=== PATIENT | male | born 1955 | race Caucasian/White ===

== ENCOUNTER 2016-06-21 05:20 | Inpatient (IN) | payer MEDICARE, OTHER ==
[2016-06-21] VITALS (13 sets, daily range): BP systolic 103–147; BP diastolic 50–82
[~2016-06-21] VITALS: Ht 182.9 cm; Wt 76.9 kg
[2016-06-21] MEDS ORDERED: IV NORMAL SALINE 1,000ML 1,000 ML IV SCH ×2 (05:32→18:12)
--- NOTE | 2016-06-21 05:43 | EKG ---
[address] [address] Test Date: 2016-06-21 Test Time: 05:22:58 Pat Name: MAY CARNEY Department: Room: Gender: M Sports Athletic Trainer: : 1955 Requested By: TIERNEY YANG Order Number: [id number] Gery MD: Néstor Esposito Measurements Intervals [place] Rate: 175 P: VA: QRS: 33 QRSD: 88 T: 46 QT: 264 QTc: 455 Interpretive Statements SUPRAVENTRICULAR TACHYCARDIA Electronically Signed On 06-25-2016 15:27:59 CDT by Néstor Esposito
[2016-06-21] MEDS ORDERED: 0.9 % SODIUM CHLORIDE 10 ML DISP.SYRIN. IV PRN (05:45)
[2016-06-21] MEDS ORDERED: NOREPINEPHRINE BITARTRATE 8 MG in IV NORMAL SALINE 250ML 250 ML IV PRN (05:45)
[2016-06-21] MEDS ORDERED: VANCOMYCIN PER PHARMACY MC ONE (05:45)
[2016-06-21] MEDS ORDERED: IV NORMAL SALINE 1,000ML 1,000 ML ONE (05:48)
[2016-06-21 05:55] LABS: BASO % 0 % (0-3); EOS # 0.2 x10^3/uL (0.0-0.7); EOS % 2 % (0-3); HEMATOCRIT 37.8 % (39.0-53.0); HEMOGLOBIN 11.9 g/dL (13.0-17.5); LYMPH # 1.6 x10^3/uL (1.0-4.8); LYMPH % 13 % (24-48); MEAN CORPUSCULAR HEMOGLOBIN 26 pg (25-35); MEAN CORPUSCULAR HGB CONC 32 g/dL (31-37); MEAN CORPUSCULAR VOLUME 84 fL (79-100); MONO # 1.4 x10^3/uL (0.0-1.1); MONO % 11 % (0-9); NEUT # 9.4 x10^3uL (1.8-7.7); NEUT % 74 % (31-73); PLATELET COUNT 272 x10^3/uL (140-400); RED BLOOD COUNT 4.52 x10^6/uL (4.30-5.70); RED CELL DISTRIBUTION WIDTH 14.8 % (11.5-14.5); WHITE BLOOD COUNT 12.7 x10^3/uL (4.0-11.0)
[2016-06-21] MEDS ORDERED: IV NORMAL SALINE 50ML 50 ML ONE (05:55)
[2016-06-21] MEDS ORDERED: PIPERACILLIN/TAZOBACTAM 4.5 GM VIAL IV ONE (05:55)
--- NOTE | 2016-06-21 05:56 | PHYS DOC ---
General Chief Complaint: NAUSEA/VOMITING/DIARRHEA Stated Complaint: NAUSEA,VOMITING Time Seen by MD: 05:31 Source: patient Exam Limitations: clinical condition, other Problems: History of Present Illness Initial Comments "Give me a vomit bag and a urine cup." Pt is 60/M to ED from [facility] at [facility] via EMS for n/v/d. No PMH records available initially, uncooperative pt arrives febrile and apparently septic, initial ED VS 100.8, 173, 83/65, 99% RA. Two IVs established NS boluses initiated, BP recheck 105/89. Pt states for the past 3 days he's had severe cough, fever/chills/myalgias, urinary frequency/hesitancy, and post-tussive emesis. Pt does not vocalize complaints, "Give me a vomit bag and a urinal." To my inquiry for details and contributing factors regarding HPI pt states "I do PT every day, see I take care of myself." He does appear to have dementia, no lateralizing neurodeficits are present. Only medical history pt willing to reveal is that he had his appendix removed in the past. No prior records initially, pt is very poor historian as he arrives to the ED generally uncooperative, sarcastic, and insulting of staff. 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 Pt also had debridement or right foot ulcer 04/19. Wound cultures from 04/14 grew citrobacter, wells-sensitive pseudomonas, and blood cultures + Klebsiella. Upon hospital discharge pt rx doxycycline. Hospital course was complicated by urinary retention requiring catheterization, he was treated for candidal UTI. On 04/29 pt had episode SVT requiring adenosine. He was d/c to [facility] for continued care and rehab. I did speak with pt PCP at [place] Dr Alford, she states pt has had no symptoms and was otherwise well until yesterday some difficulty with pt prosthesis. She states pt had extensive labwork 2-3 days ago all of which was very reassuring, CRP was less than 1 with normal renal function. Pt is full code Pt MS did improve over time in ED with hydration and VS stabilization. Timing/Duration: unsure (possibly 3 days) Severity: severe Modifying Factors: improves with rest, worse with other Associated Symptoms: cough, diaphoresis, fever/chills, malaise, nausea/ vomiting (post-tussive) Allergies: Coded Allergies: No Known Drug Allergies (Unverified , 06/21/16) Past Medical History Medical History: other (DM, chronic osteomyelitis, SVT requiring adenosine 04/29, weight loss, HLP, iron deficiency anemia, psychotic disorder, vit D defic, insomnia, DM retinopathy, phantom limb, orthostatic hypotension, UTI, BPH, urinary retention, jason UTI, Klebsiella bacteremia) Surgical History: other (left BKA and subsequent AKA, left distal radius, appendectomy) Social History Smoker: cigarettes, greater than 1 pack/day Alcohol: other (couple of pink ladies daily) Drugs: none Review of Systems Constitutional: see HPI Respiratory: see HPI Cardiovascular: see HPIdenies chest pain, denies syncope Gastrointestinal: see HPI Genitourinary: see HPI Psychiatric/Neurological: see HPI Physical Exam General Appearance: severe distress Eyes: bilateral eye EOMI, bilateral eye PERRL, bilateral eye normal inspection Ear, Nose, Throat: hearing grossly normal, normal ENT inspection (dry membranes ), normal pharynx Neck: non-tender, supple Respiratory: no respiratory distress, other (coarse BS b/l with good air movement) Cardiovascular: normal peripheral pulses, tachycardia Gastrointestinal: normal bowel sounds, non tender, soft, no organomegaly Rectal: deferred Back: no vertebral tenderness, CVA tenderness (R) Extremities: other (callous formation at right planar 5th MTP joint no ulcer, left AKA stump no skin breakdown/erythema appears to be healing well) Neurologic/Psychiatric: brick and blocker aid labor II-XII nml as tested, no motor/sensory deficits, alert, other (on arrival pt very inappropriate, however as his VS improved and he became hydrated MS normalized to normal mood, cooperative, appropriate, AOx3) Skin: normal color, warm/dry Orders, Labs, Meds EKG: (0522) sinus tachycardia 175 bpm no STEMI per my evaluation 0610: Current heart rate 81 bpm, 95/54, 99% RA. No new complaints, no n/v and cough improved. EKG: (0635) NSR 77 bpm, no STEMI PATIENT: MAY CARNEY ACCOUNT: [id number] : 1955 LOCATION: ER AGE: 60 SEX: M EXAM STATUS: REG ER ORD. PHYSICIAN: TIERNEY YANG DO REASON: Sepsis, nausea, vomiting, fever PROCEDURE: ACUTE ABDOMEN SERIES Acute abdomen series with chest, 3 views, 06/21/2016: History: Nausea, vomiting, sepsis, fever The abdominal gas pattern is unremarkable without evidence of obstruction. No free air is seen in the abdomen. There is no evidence of organomegaly or abnormal abdominal calcifications. The heart size is normal. No pulmonary infiltrate is seen. There is no evidence of pleural fluid. IMPRESSION: No acute abdominal abnormality is detected. DICTATED AND SIGNED BY: BRITNI PARRY MD DATE: 06/21/16804 CC: PCP,NO; TIERNEY YANG DO ~ Pertinent labs: WBC 12.7, Hb 11.9, glucose 348, BUN 33, Cr 1.5, lactic acid 2.4 , Trop I 0.019, d-dimer 1.0, CRP 125.4, albumin 2.8, etoh + and <10, Influenza neg, UA grossly positive for infection. Blood/urine/sputum cultures pending. ED Course: Pt VS and MS improved with hydration, has now received nearly 3L IV hydration. Zosyn/vancomycin/tylenol given in ED. No emesis in ED, pt overall feeling much better. IMPRESSIONS: Urosepsis Hypovolemia SVT 2nd to above resolved with hydration Recent osteomyelitis with CRP 125.4 DM uncontrolled ARF Elevated d-dimer Urinary retention 0745: I discussed need for inpatient treatment. Pt states he refuses. His mental status has normalized, he is AOx3 and exhibits UCAR capacity. RN has called [place] to speak with pt's Dr Alford, awaiting her return call. 0915: Dr Alford called, she is in agreement pt needs hospitalization and her staff has spoken with pt. He is agreeable to admission. She also added that likely cause of UTI is retention, she requested we scan his bladder. She also added that pt's CRP was < 1 three days ago. 0915: Pt discussed with Dr Huber who requests CT evaluation b/l LE, call her back with results. CT nonfunctional at main building. RN reports urine residual volume 639mls. He has since voided 400+ mls. PATIENT: MAY CARNEY ACCOUNT: [id number] : 1955 LOCATION: ER AGE: 60 SEX: M EXAM STATUS: REG ER ORD. PHYSICIAN: TIERNEY YANG DO REASON: eval right foot and left stump for osteomyelitis recurrance PROCEDURE: CT LOWER EXTREMITY WO RIGHT Indication redness. Swelling. History of osteomyelitis. Axial images through the right ankle and foot were obtained. Images were reformatted in the coronal and sagittal planes. The study is slightly limited secondary to motion and the lack of IV contrast. An acute bony finding is not seen. Definite findings to suggest osteomyelitis are not seen. There is soft tissue swelling. A definite underlying abscess is not seen.. IMPRESSION: Soft tissue swelling. No definite bony finding seen. The study is limited as outlined above. If further evaluation for bone infection is warranted consider bone scan or MRI PQRS Compliance Statement: One or more of the following individualized dose reduction techniques were utilized for this examination: 1. Automated exposure control 2. Adjustment of the mA and/or kV according to patient size 3. Use of iterative reconstruction technique DICTATED AND SIGNED BY: SATHISH TORRES MD DATE: 06/21/16 1027 CC: PCP,ANABELA; TIERNEY YANG DO ~ PATIENT: MAY CARNEY ACCOUNT: [id number] : 1955 LOCATION: ER AGE: 60 SEX: M EXAM STATUS: REG ER ORD. PHYSICIAN: TIERNEY YANG DO REASON: OSTEOMYELITIS PROCEDURE: CT LOWER EXTREMITY WO LEFT CT of the left lower extremity without contrast, 06/21/2016: History: Possible osteomyelitis No IV contrast was administered for this study due to reported renal disease. There has been a previous left hnqne-kkr-[id number] amputation. There is minimal callus and/or dystrophic calcification adjacent to the bony stump. No bone destruction is seen. There is vague decreased density deep to the thigh musculature predominantly along the lateral and posterior margins of the distal stump. This process measures approximately 15 mm in greatest width as best seen laterally. The appearance suggests nonspecific fluid. No gas bubbles are seen within this process. A smaller vague area of decreased density is also noted within the inferior aspect of the hamstring musculature at the stump as seen on axial image 168 of series #3. There is moderate subcutaneous edema within the soft tissues of the stump. No subcutaneous gas is evident. Mild degenerative changes are present at the left hip joint. IMPRESSION: 1. No acute bony abnormality is detected. 2. Vague area of decreased density adjacent to the bony stump deep to the musculature suggesting nonspecific fluid such as hematoma or seroma. Infection cannot be excluded. 3. A smaller area of similar decreased density is seen within the hamstring musculature at the stump. PQRS Compliance Statement: One or more of the following individualized dose reduction techniques were utilized for this examination: 1. Automated exposure control 2. Adjustment of the mA and/or kV according to patient size 3. Use of iterative reconstruction technique DICTATED AND SIGNED BY: BRITNI PARRY MD DATE: 06/21/16 1032 CC: PCP,NO; TIERNEY YANG DO ~ 1110: Pt discussed with Dr Huber who accepts inpt/tele admission, IV fluids/ zosyn/vancomycin mainstay of treatment. Departure Time of Disposition: 11:14 Disposition: ADMITTED INPATIENT Diagnosis: urosepsis, b/l LE infection r/o osteomyelitis, hyp Condition: IMPROVED Additional Instructions: Inpt/tele admission Dr Huber is accepting. TIERNEY YANG DO Jun 21, 2016 05:56
[2016-06-21] MEDS ORDERED: PIPERACILLIN/TAZOBACTAM 4.5 GM in IV NORMAL SALINE 50ML 50 ML IV ONE ×2 (06:00→11:30)
[2016-06-21] MEDS ORDERED: [UNRECOGNIZED DRUG - OTHER] PO ONE (06:00)
[2016-06-21] MEDS ORDERED: CODEINE PO ONE (06:00)
[2016-06-21] MEDS ORDERED: ACETAMINOPHEN 325 MG TABLET PO ONE (06:00)
[2016-06-21] MEDS ORDERED: ONDANSETRON PF 4 MG/2 ML VIAL. IV ONE (06:00)
[2016-06-21] MEDS ORDERED: IV NORMAL SALINE 1,000ML 1,000 ML IV ONE (06:00)
[2016-06-21] MEDS ORDERED: PROMETH PO ONE (06:00)
[2016-06-21 06:04] LABS: ALBUMIN 2.8 g/dL (3.4-5.0); ALBUMIN/GLOBULIN RATIO 0.6 (1.0-1.7); CREATININE 1.5 mg/dL (0.7-1.3); GFR 47.7; POTASSIUM 4.9 mmol/L (3.5-5.1); TOTAL BILIRUBIN 0.3 mg/dL (0.2-1.0); TOTAL PROTEIN 7.2 g/dL (6.4-8.2)
[2016-06-21] MEDS ORDERED: VANCOMYCIN 2 GM in IV NORMAL SALINE 500ML 500 ML IV ONE (06:30)
[2016-06-21] MEDS ORDERED: INSULIN REGULAR 100 UNIT/ML 10ML VIAL. IV ONE (06:30)
[2016-06-21] MEDS ORDERED: IV NORMAL SALINE 500ML 500 ML ONE (06:43)
[2016-06-21] MEDS ORDERED: VANCOMYCIN 1 GM VIAL. ONE ×2 (06:43)
[2016-06-21 07:14] LABS: COLOR,URINE YELLOW
[2016-06-21 07:15] LABS: BACTERIA,URINE MANY /HPF (0-FEW); BILIRUBIN,URINE NEG (NEG); CLARITY,URINE TURBID; GLUCOSE,URINE NEG (NEG); NITRITE,URINE NEG (NEG); SQUAMOUS EPITHELIAL CELL,UR OCC /LPF; UROBILINOGEN,URINE 0.2 mg/dL (0.2 mg/dL); WBC,URINE TNTC /HPF (0-4)
[2016-06-21 07:22] LABS: AMPHETAMINE/METHAMPHETAMINE NEG (NEG); BARBITURATES NEG (NEG); BENZODIAZEPINES NEG (NEG); CANNABINOIDS NEG (NEG); COCAINE NEG (NEG); METHADONE NEG (NEG); OPIATES NEG (NEG); PHENCYCLIDINE NEG (NEG)
[2016-06-21 07:29] LABS: INFLUENZA A PATIENT NEGATIVE (NEGATIVE); INFLUENZA B PATIENT NEGATIVE (NEGATIVE)
--- NOTE | 2016-06-21 07:36 | EKG ---
[address] [address] Test Date: 2016-06-21 Test Time: 06:35:35 Pat Name: MAY CARNEY Department: Room: Gender: M Front End Application Developer: : 1955 Requested By: TIERNEY YANG Order Number: [id number] Reading MD: Néstor Esposito Measurements Intervals [place] Rate: 77 P: 51 DC: 148 QRS: 43 QRSD: 92 T: 36 QT: 368 QTc: 418 Interpretive Statements SINUS RHYTHM Electronically Signed On 06-25-2016 15:28:04 CDT by Néstor Esposito
--- NOTE | 2016-06-21 08:09 | RAD ---
Acute abdomen series with chest, 3 views, 06/21/2016: History: Nausea, vomiting, sepsis, fever The abdominal gas pattern is unremarkable without evidence of obstruction. No free air is seen in the abdomen. There is no evidence of organomegaly or abnormal abdominal calcifications. The heart size is normal. No pulmonary infiltrate is seen. There is no evidence of pleural fluid. IMPRESSION: No acute abdominal abnormality is detected.
[2016-06-21] MEDS: IV NORMAL SALINE 1,000ML 1,000 ML IV SCH ×5 (09:30→16:03)
--- NOTE | 2016-06-21 10:37 | RAD ---
Indication redness. Swelling. History of osteomyelitis. Axial images through the right ankle and foot were obtained. Images were reformatted in the coronal and sagittal planes. The study is slightly limited secondary to motion and the lack of IV contrast. An acute bony finding is not seen. Definite findings to suggest osteomyelitis are not seen. There is soft tissue swelling. A definite underlying abscess is not seen.. IMPRESSION: Soft tissue swelling. No definite bony finding seen. The study is limited as outlined above. If further evaluation for bone infection is warranted consider bone scan or MRI PQRS Compliance Statement: One or more of the following individualized dose reduction techniques were utilized for this examination: 1. Automated exposure control 2. Adjustment of the mA and/or kV according to patient size 3. Use of iterative reconstruction technique
--- NOTE | 2016-06-21 10:51 | RAD ---
CT of the left lower extremity without contrast, 06/21/2016: History: Possible osteomyelitis No IV contrast was administered for this study due to reported renal disease. There has been a previous left eteun-ceg-zzqq amputation. There is minimal callus and/or dystrophic calcification adjacent to the bony stump. No bone destruction is seen. There is vague decreased density deep to the thigh musculature predominantly along the lateral and posterior margins of the distal stump. This process measures approximately 15 mm in greatest width as best seen laterally. The appearance suggests nonspecific fluid. No gas bubbles are seen within this process. A smaller vague area of decreased density is also noted within the inferior aspect of the hamstring musculature at the stump as seen on axial image 168 of series #3. There is moderate subcutaneous edema within the soft tissues of the stump. No subcutaneous gas is evident. Mild degenerative changes are present at the left hip joint. IMPRESSION: 1. No acute bony abnormality is detected. 2. Vague area of decreased density adjacent to the bony stump deep to the musculature suggesting nonspecific fluid such as hematoma or seroma. Infection cannot be excluded. 3. A smaller area of similar decreased density is seen within the hamstring musculature at the stump. PQRS Compliance Statement: One or more of the following individualized dose reduction techniques were utilized for this examination: 1. Automated exposure control 2. Adjustment of the mA and/or kV according to patient size 3. Use of iterative reconstruction technique
[2016-06-21] MEDS ORDERED: ACETAMINOPHEN 325 MG TABLET PO PRN (11:15)
[2016-06-21] MEDS ORDERED: ONDANSETRON PF 4 MG/2 ML VIAL. IV PRN (11:15)
[2016-06-21] MEDS ORDERED: PIP/TAZO PER PHARMACY MC PRN (12:00)
[2016-06-21] MEDS ORDERED: VANCOMYCIN PER PHARMACY MC PRN (12:00)
[2016-06-21] MEDS ORDERED: DEXTROSE 50% 25 GM / 50ML DISP.SYRIN. IV PRN (12:00)
[2016-06-21] MEDS ORDERED: PIP/TAZO PER PHARMACY MC SCH (12:00)
[2016-06-21] MEDS: VANCOMYCIN PER PHARMACY MC SCH (12:01)
[2016-06-21] MEDS ORDERED: ASPI81TA2 PO (12:19)
[2016-06-21] MEDS ORDERED: ACET325T9 PO (12:19)
[2016-06-21] MEDS ORDERED: ATOR40TA59 PO (12:20)
[2016-06-21] MEDS ORDERED: CYAN10005 PO (12:21)
[2016-06-21] MEDS ORDERED: ERGO500012 PO (12:22)
[2016-06-21] MEDS ORDERED: FINA5TAB4 PO (12:22)
[2016-06-21] MEDS ORDERED: GABA-586 PO (12:23)
[2016-06-21] MEDS ORDERED: HYDR-2666 PO (12:24)
[2016-06-21] MEDS ORDERED: INSU100I17 SQ (12:25)
[2016-06-21] MEDS ORDERED: MAGN400T3 PO (12:28)
[2016-06-21] MEDS ORDERED: INSU100V13 SQ (12:28)
[2016-06-21] MEDS ORDERED: METF10002 PO (12:29)
[2016-06-21] MEDS ORDERED: METO25TA4 PO (12:29)
[2016-06-21] MEDS ORDERED: POLY17PO3 PO (12:30)
[2016-06-21] MEDS ORDERED: TAMS0.4C2 PO (12:30)
[2016-06-21] MEDS ORDERED: VENL75TA PO (12:31)
[2016-06-21] MEDS: INSULIN ASPART 300 UNITS/3 ML INSULN.PEN SQ SCH ×3 (12:45→20:38)
[2016-06-21] MEDS: PIPERACILLIN/TAZOBACTAM 3.375 GM in IV NORMAL SALINE 50ML 50 ML IV SCH ×2 (12:46→17:47)
[2016-06-21] MEDS: NORMAL SALINE IV SCH ×6 (12:46→18:00)
--- NOTE | 2016-06-21 13:56 | HP ---
ADMIT DATE: 06/21/2016 REASON FOR ADMISSION: Fever and sepsis. The history was obtained [facility], [facility] and a little bit from the patient, who was basically not cooperative with interview. HISTORY OF PRESENT ILLNESS: This is a 60-year-old , who was referred here for fever, which he states was 104 [facility] the [facility] facility where he is out at the moment, fever, tachycardia and hypotension. In the Emergency Room his temp was 100.8, his pulse was 173 and his blood pressure was 83/65. The patient himself has complained of severe cough, fever, chills and myalgias, urinary frequency. PAST MEDICAL HISTORY: He has been on doxycycline after completing the course of IV antibiotics for left leg osteomyelitis. He is also status post AKA. The organisms were Citrobacter, pseudomonas and Klebsiella growing in his blood. He has been having problems with urinary retention and was treated for a Janna UTI. He also had history of 227 of SVT, which required adenosine. at the [place] for rehab. He is doing PT and had extensive lab work 2 to 3 days ago, which apparently was normal. Hypertension, elevated cholesterol, history of right foot ulcer with debridement, tobacco use disorder, type 2 diabetes, psychotic, phantom limb pain, iron deficiency anemia. CODE STATUS: Full. ALLERGIES: None. MEDICATIONS: Extensive meds and that were reviewed. on the MAY. PAST SURGICAL HISTORY: Left BKA, subsequent followup with AKA and appendectomy. SOCIAL HISTORY: The patient would not give me amount of tobacco use, but according to the record greater than 1 pack a day. Alcohol: I told him his test was positive for alcohol and he stated "I do not appreciate of drinking because I don't drink." However, the records states that he drinks couple of [place] [employer] daily. REVIEW OF SYSTEMS: I asked him "do you have any particular complaints and he said no, I do not have any complaints and not cooperative." OBJECTIVE: GENERAL: After fluid resuscitation, his blood pressure 122/71, pulse 66, respirations 20, pulse ox 98% on room air, his temperature is 99 with a T-max of 100.8 at 5:30 this morning, his pulse was also 173 at 5:30 this morning. Height 72 inches, weight 170 pounds. GENERAL: A 60-year-old, who looks his stated age. He is alert and somewhat uncooperative. HEENT: His hearing is normal. His eyes are clear. His throat is clear. There is no exudate. NECK: Supple. There is no adenopathy. LUNGS: With a few crackles in the bases, but otherwise clear. CARDIOVASCULAR: Regular rhythm and rate. ABDOMEN: Soft, nontender, mildly protuberant. EXTREMITIES: The right extremity without edema or evidence of infection. He has a left stump with a transverse incision line, which is intact and shows no evidence of infection. LABORATORY DATA: His white blood cell count is 12.7, hemoglobin 11.9, hematocrit 37.8. He does have 74% neutrophils and 11% monos. Chemistry; C-reactive protein is 125.4, BUN is 33, creatinine is 1.5, glucose is 348 earlier, albumin is 2.8. D-dimer is 1. Alcohol was positive, it was less than 10. Urinalysis, too numerous to count white cells, large leukocyte esterase turbid clarity. Influenza A and B were negative. ASSESSMENT: 1. Sepsis with organ dysfunction. 2. Urinary tract infection. 3. Hypotension, resolved with fluid resuscitation. 4. Moderate protein malnutrition. 5. Positive alcohol and tobacco use disorder. 6. Episode of supraventricular tachycardia, which resolved with hydration, recent osteomyelitis, type 2 diabetes with hyperglycemia, elevated D-dimer with no evidence of PE. He has been on Lovenox. 7. Hypertension and reported nausea and vomiting, but is eating fine in the unit. PLAN: Admit to ICU, monitor his vital signs, IV antibiotics. His CAT scans were negative for osteomyelitis. Continue with DVT prophylaxis and wait for urine cultures. NIVIA KENDRICK DO DR: CARITO/tracey JOB#: [id number] / [id number]
[2016-06-21] MEDS: ENOXAPARIN 40 MG/0.4 ML DISP.SYRIN. SQ SCH (14:28)
[2016-06-21] MEDS: METOPROLOL TART IMMED RELEASE 25 MG TABLET PO SCH (18:36)
[2016-06-21] MEDS: INSULIN DETEMIR 300 UNITS/3 ML INSULN.PEN. SQ SCH (20:33)
[2016-06-21] MEDS: VENLAFAXINE 50 MG TABLET. PO SCH (20:37)
[2016-06-21] MEDS: GABAPENTIN 300 MG CAPSULE. PO SCH (20:37)
[2016-06-21] MEDS: HYDROCODONE/APAP 5/325MG TABLET. PO PRN (20:37)
[2016-06-21] MEDS: MAGNESIUM OXIDE 400 MG TABLET PO SCH (20:37)
[2016-06-21] MEDS: ATORVASTATIN CALCIUM 20 MG TABLET PO SCH (20:37)
[2016-06-22] VITALS (10 sets, daily range): BP systolic 109–151; BP diastolic 63–85
[2016-06-22] MEDS: PIPERACILLIN/TAZOBACTAM 3.375 GM in IV NORMAL SALINE 50ML 50 ML IV SCH ×4 (00:30→16:56)
--- NOTE | 2016-06-22 00:32 | ACF ---
Admission Criteria Forms SEPSIS and OTHER FEBRILE ILLNESS, W/O FOCAL INFECTION Clinical Indications for Admission to Inpatient Care ( Place 'X' for any and all applicable criteria): Admission is indicated for ANY ONE of the following (1)(2)(3)(4): [ ] I. Bacteremia [X]II. Suspected or identified specific infection requiring hospitalization (eg, meningitis, endocarditis) [ ]III. Hemodynamic instability [ ]IV. Altered mental status [X]V. Failure or unavailability of outpatient antimicrobial treatment [ ]. Hypoxemia [ ]VII. Seizures [ ]VIII. High-risk febrile neutropenia [ ]IX. Need for parenteral antibiotic in patient who is likely to abuse vascular access device (eg, injection drug user) [A](7) [ ]X. Temperature greater than 104.9 degrees F (40.5 degrees C) (oral) [ ]XI. Inpatient admission required rather than observation care because of ANY ONE of the following: [ ]1) Specific infection identified that is too severe for outpatient treatment or observation care trial [ ]2) Metabolic disorder (eg, hypoglycemia, hyperglycemia, metabolic acidosis) that is severe or persistent [ ]3) Temperature greater than 103.1 degrees F (39.5 degrees C) ( oral) that is not responsive to observation care treatment [ ]4) IV fluid to replace significant ongoing (eg, for over 24 hours) losses (> 3 L/m2 per day) [ ]5) Supplemental oxygen or respiratory treatments for over 24 hours that is performable only in acute inpatient setting [ ]6) Parenteral nutrition regimen need that must be implemented on inpatient basis [ ]7) Strict or protective (eg, laminar flow) isolation [ ]8) Other condition, treatment or monitoring requiring inpatient admission Extended stay beyond goal length of stay may be needed for(1)(3) [ ]a) Sepsis or septic shock(22) [ ]b) Positive blood cultures [ ]c) Insufficient oral intake [ ]d) High-risk febrile neutropenia(29)(30) [ ]e) Continued fever and clinical instability [ ]f) Clinically active comorbid illness (e.g,heart failure, renal failure , diabetes) The original [facility] [employer] content created by Shiloh Smith has been revised. The portions of the content which have been revised are identified through the use of italic text or in bold, and Shiloh Smith has neither reviewed nor approved the modified material. All other unmodified content is copyright [facility]. Please see references footnoted in the original [facility] edition 2016 Admission Criteria Met?: Yes NOMI JIMENEZ Jun 22, 2016 00:32
[2016-06-22] MEDS: IV NORMAL SALINE 1,000ML 1,000 ML IV SCH ×2 (04:00→14:38)
[2016-06-22] MEDS ORDERED: IV NORMAL SALINE 1,000ML 1,000 ML IV SCH (04:00)
[2016-06-22] MEDS: VANCOMYCIN 1.25 GM in IV NORMAL SALINE 250ML 250 ML IV SCH (06:10)
[2016-06-22 06:44] LABS: ALBUMIN 2.3 g/dL (3.4-5.0); ALBUMIN/GLOBULIN RATIO 0.6 (1.0-1.7); CALCIUM 8.2 mg/dL (8.5-10.1); CREATININE 1.1 mg/dL (0.7-1.3); GFR 68.3; POTASSIUM 4.2 mmol/L (3.5-5.1); TOTAL BILIRUBIN 0.2 mg/dL (0.2-1.0); TOTAL PROTEIN 6.3 g/dL (6.4-8.2)
[2016-06-22 07:11] LABS: BASO % 1 % (0-3); EOS # 0.2 x10^3/uL (0.0-0.7); EOS % 3 % (0-3); HEMATOCRIT 31.9 % (39.0-53.0); HEMOGLOBIN 10.5 g/dL (13.0-17.5); LYMPH # 1.1 x10^3/uL (1.0-4.8); LYMPH % 15 % (24-48); MEAN CORPUSCULAR HEMOGLOBIN 28 pg (25-35); MEAN CORPUSCULAR HGB CONC 33 g/dL (31-37); MEAN CORPUSCULAR VOLUME 83 fL (79-100); MONO # 0.8 x10^3/uL (0.0-1.1); MONO % 11 % (0-9); NEUT # 5.4 x10^3uL (1.8-7.7); NEUT % 72 % (31-73); PLATELET COUNT 253 x10^3/uL (140-400); RED BLOOD COUNT 3.83 x10^6/uL (4.30-5.70); RED CELL DISTRIBUTION WIDTH 14.7 % (11.5-14.5); WHITE BLOOD COUNT 7.5 x10^3/uL (4.0-11.0)
[2016-06-22] MEDS: GABAPENTIN 300 MG CAPSULE. PO SCH ×3 (07:57→20:06)
[2016-06-22] MEDS: FINASTERIDE 5 MG TABLET PO SCH (07:57)
[2016-06-22] MEDS: VENLAFAXINE 50 MG TABLET. PO SCH ×2 (07:57→20:06)
[2016-06-22] MEDS: ASPIRIN 81 MG TAB.CHEW PO SCH (07:58)
[2016-06-22] MEDS: HYDROCODONE/APAP 5/325MG TABLET. PO PRN (07:58)
[2016-06-22] MEDS: MAGNESIUM OXIDE 400 MG TABLET PO SCH ×2 (07:58→20:06)
[2016-06-22] MEDS: METOPROLOL TART IMMED RELEASE 25 MG TABLET PO SCH ×3 (07:58→16:55)
[2016-06-22] MEDS: TAMSULOSIN 0.4 MG CAP.ER.24H. PO SCH (07:58)
[2016-06-22] MEDS: POLYETHYLENE GLYCOL 3350 17 GM PACKET. PO SCH (07:58)
[2016-06-22] MEDS ORDERED: METFORMIN 500 MG TABLET. PO SCH (08:00)
[2016-06-22] MEDS: INSULIN ASPART 300 UNITS/3 ML INSULN.PEN SQ SCH ×4 (08:00→20:30)
[2016-06-22] MEDS: METFORMIN 500 MG TABLET. PO SCH ×2 (08:30→16:55)
[2016-06-22] MEDS: ENOXAPARIN 40 MG/0.4 ML DISP.SYRIN. SQ SCH (12:18)
--- NOTE | 2016-06-22 17:39 | PN ---
DATE: 06/22/2016 PROBLEMS: 1. Sepsis with organ dysfunction 2. Urinary tract infection. 3. septic shock, which has resolved. 4. Moderate protein malnutrition. 5. Alcohol use disorder. 6. Tobacco use disorder. 7. Episode of SVT in the Emergency Room, which resolved with hydration. 8. History of osteomyelitis. 9. Type 2 diabetes. 10. Elevated D-dimer with negative PE and DVT workup. 11. Hypertension. 12. One episode of vomiting. SUBJECTIVE: A 60-year-old admitted with the above problems. He had one episode of vomiting last night. This was when his temperature was 100.6 axillary, otherwise he has had uneventful night and continues on his antibiotics. Still waiting for the microbiology. Decided to go ahead and do a bone scan because of the somewhat inconclusive CT of his left AKA stump and right foot. OBJECTIVE: VITAL SIGNS: Blood pressure 111/63, pulse 61, respirations 18, pulse ox 92% on room air. Intake 4150, output 2452. GENERAL: Much calmer today, less uncooperative, does not have any specific complaints. His appetite is good. HEENT: His tongue was moist. NECK: Supple. LUNGS: Clear. CARDIOVASCULAR: Regular rhythm and rate. ABDOMEN: Soft, nontender. EXTREMITIES: Right extremity without edema. LABORATORY DATA: Glucose in 200s. CBC: White count now 7.5, down from 12.7. His bone scan is pending. PLAN: Continue current plan. Await the results of bone scan, decrease IV fluids. NIVIA KENDRICK DO DR: CARITO/tracey JOB#: [id number] / [id number]
[2016-06-22] MEDS: ATORVASTATIN CALCIUM 20 MG TABLET PO SCH (20:06)
[2016-06-22] MEDS: INSULIN DETEMIR 300 UNITS/3 ML INSULN.PEN. SQ SCH (20:07)
[2016-06-23] MEDS: PIPERACILLIN/TAZOBACTAM 3.375 GM in IV NORMAL SALINE 50ML 50 ML IV SCH ×2 (00:11→05:36)
[2016-06-23 06:04] VITALS: BP 137/81
[2016-06-23] MEDS: VANCOMYCIN 1.25 GM in IV NORMAL SALINE 250ML 250 ML IV SCH (06:09)
[2016-06-23 07:05] LABS: VANC TR 5.6 mcg/mL (10.0-20.0)
[2016-06-23] MEDS: INSULIN ASPART 300 UNITS/3 ML INSULN.PEN SQ SCH ×4 (07:30→21:00)
[2016-06-23 08:14] LABS: BASO % 1 % (0-3); EOS # 0.2 x10^3/uL (0.0-0.7); EOS % 3 % (0-3); HEMATOCRIT 32.4 % (39.0-53.0); HEMOGLOBIN 10.7 g/dL (13.0-17.5); LYMPH # 1.1 x10^3/uL (1.0-4.8); LYMPH % 15 % (24-48); MEAN CORPUSCULAR HEMOGLOBIN 27 pg (25-35); MEAN CORPUSCULAR HGB CONC 33 g/dL (31-37); MEAN CORPUSCULAR VOLUME 83 fL (79-100); MONO # 0.6 x10^3/uL (0.0-1.1); MONO % 7 % (0-9); NEUT # 5.9 x10^3uL (1.8-7.7); NEUT % 75 % (31-73); PLATELET COUNT 286 x10^3/uL (140-400); RED BLOOD COUNT 3.91 x10^6/uL (4.30-5.70); RED CELL DISTRIBUTION WIDTH 14.7 % (11.5-14.5); WHITE BLOOD COUNT 7.9 x10^3/uL (4.0-11.0)
[2016-06-23 08:26] LABS: ALBUMIN 2.4 g/dL (3.4-5.0); ALBUMIN/GLOBULIN RATIO 0.6 (1.0-1.7); CALCIUM 8.6 mg/dL (8.5-10.1); MAGNESIUM 1.9 mg/dL (1.8-2.4); POTASSIUM 3.9 mmol/L (3.5-5.1); TOTAL BILIRUBIN 0.3 mg/dL (0.2-1.0); TOTAL PROTEIN 6.6 g/dL (6.4-8.2)
[2016-06-23] MEDS: VANCOMYCIN PER PHARMACY MC SCH (09:00)
[2016-06-23] MEDS: POLYETHYLENE GLYCOL 3350 17 GM PACKET. PO SCH ×2 (09:00→09:46)
[2016-06-23] MEDS: METOPROLOL TART IMMED RELEASE 25 MG TABLET PO SCH ×2 (09:47→17:01)
[2016-06-23] MEDS: FINASTERIDE 5 MG TABLET PO SCH (09:47)
[2016-06-23] MEDS: MAGNESIUM OXIDE 400 MG TABLET PO SCH ×2 (09:48→20:37)
[2016-06-23] MEDS: GABAPENTIN 300 MG CAPSULE. PO SCH ×3 (09:48→20:37)
[2016-06-23] MEDS: TAMSULOSIN 0.4 MG CAP.ER.24H. PO SCH (09:48)
[2016-06-23] MEDS: METFORMIN 500 MG TABLET. PO SCH ×2 (09:48→17:00)
[2016-06-23] MEDS: ASPIRIN 81 MG TAB.CHEW PO SCH (09:48)
[2016-06-23] MEDS: VENLAFAXINE 50 MG TABLET. PO SCH ×2 (09:49→20:36)
[2016-06-23] MEDS: PIPERACILLIN/TAZOBACTAM 4.5 GM in IV NORMAL SALINE 50ML 50 ML IV SCH ×2 (12:00→12:49)
[2016-06-23 12:04] VITALS: BP 147/85
[2016-06-23] MEDS ORDERED: VANCOMYCIN 1.25 GM in IV NORMAL SALINE 250ML 250 ML IV SCH (14:30)
[2016-06-23] MEDS: ENOXAPARIN 40 MG/0.4 ML DISP.SYRIN. SQ SCH (14:52)
--- NOTE | 2016-06-23 15:10 | RAD ---
Three-phase bone scan of the right foot 06/23/2016 Clinical history: Wound involving the plantar aspect of the base of the right fifth toe. Technique: After the intravenous administration of 26.7 mCi of technetium 99m MDP, flow and immediate blood pool images of the right foot were obtained. Delayed images were obtained at 4 hours using the gamma camera. Findings: Comparison is made to a CT scan of the right foot dated 06/21/2016. No increased flow or blood pool is seen involving the right foot. On the delayed images areas of increased activity are seen involving the right ankle and scattered throughout the subtalar joint and the tarsometatarsal joints consistent with areas of degenerative change. No area of abnormal activity is seen to suggest evidence of osteomyelitis. Impression: There is no scintigraphic evidence of osteomyelitis involving the right foot.
[2016-06-23 15:18] VITALS: BP 161/87
[2016-06-23] MEDS: CEFTRIAXONE SODIUM 1 GM in IV NORMAL SALINE 50ML 50 ML IV SCH (16:00)
[2016-06-23 19:43] VITALS: BP 139/81
--- NOTE | 2016-06-23 19:48 | PN ---
DATE: 06/23/2016 PROBLEMS: 1. Sepsis with organ dysfunction. 2. Urinary tract infection. 3. Septic shock, which has resolved. 4. Moderate protein malnutrition. 5. Alcohol use disorder. 6. Tobacco use disorder. 7. Episode of SVT in the Emergency Room, which resolved with hydration. 8. History of osteomyelitis. 9. Type 2 diabetes. 10. Elevated D-dimer with negative for PE and DVT workup. 11. Hypertension. 12. Vomiting, which has resolved. SUBJECIVE: A 61-year-old male with the above problems. He is doing quite well. He does have a very odd affect when you speak to him and I suspect that he has a borderline personality disorder. We are having a bone scan today because of the somewhat inconclusive CT of his left AKA stump and right foot just to rule out any further osteomyelitis, but he is doing much better. OBJECTIVE: VITAL SIGNS: Blood pressure 137/81, pulse 65, temperature 97.5 and pulse ox 95% on room air. The patient's last elevated temperature was on the evening of 06/21/2016 which was 100.6. GENERAL: He is sitting in bed. He is alert, watching TV. HEENT: His tongue is moist. NECK: Supple. LUNGS: Clear. CARDIOVASCULAR: Regular rhythm and rate. ABDOMEN: Soft, nontender. EXTREMITIES: Right extremity is without edema. LABORATORY DATA: Hemoglobin 10.7, hematocrit 32.4, white cell count 7.9 down from 12.7. His CMP is essentially normal. He has a low albumin of 2.4. His bone scan is pending. Urine culture positive for gram-negative rods, sensitivity pending. PLAN: Continue IV antibiotics. Await the results of the bone scan. If the bone scan is negative, we could probably go back to [facility] tomorrow, which is a [place] [facility] and continue with his rehabilitation. NIVIA KENDRICK DO DR: CARITO/tracey JOB#: [id number] / [id number]
[2016-06-23] MEDS: ATORVASTATIN CALCIUM 20 MG TABLET PO SCH (20:37)
[2016-06-23] MEDS: INSULIN DETEMIR 300 UNITS/3 ML INSULN.PEN. SQ SCH (20:44)
[2016-06-23 23:13] VITALS: BP 150/80
[2016-06-24 05:46] VITALS: BP 130/70
[2016-06-24] MEDS: GABAPENTIN 300 MG CAPSULE. PO SCH ×3 (08:14→20:48)
[2016-06-24] MEDS: METOPROLOL TART IMMED RELEASE 25 MG TABLET PO SCH ×2 (08:15→17:55)
[2016-06-24] MEDS: MAGNESIUM OXIDE 400 MG TABLET PO SCH ×2 (08:15→20:48)
[2016-06-24] MEDS: ASPIRIN 81 MG TAB.CHEW PO SCH (08:15)
[2016-06-24] MEDS: TAMSULOSIN 0.4 MG CAP.ER.24H. PO SCH (08:15)
[2016-06-24] MEDS: FINASTERIDE 5 MG TABLET PO SCH (08:15)
[2016-06-24] MEDS: VENLAFAXINE 50 MG TABLET. PO SCH ×2 (08:15→20:48)
[2016-06-24] MEDS: METFORMIN 500 MG TABLET. PO SCH ×2 (08:15→17:54)
[2016-06-24] MEDS: INSULIN ASPART 300 UNITS/3 ML INSULN.PEN SQ SCH ×4 (08:23→21:01)
[2016-06-24] MEDS: POLYETHYLENE GLYCOL 3350 17 GM PACKET. PO SCH (08:24)
[2016-06-24 08:25] VITALS: BP 149/80
[2016-06-24] MEDS: VANCOMYCIN PER PHARMACY MC SCH (09:00)
[2016-06-24 11:04] VITALS: BP 176/88
[2016-06-24] MEDS ORDERED: INSULIN DETEMIR 300 UNITS/3 ML INSULN.PEN. SQ SCH (14:19)
[2016-06-24 14:27] LABS: VANC TR 4.1 mcg/mL (10.0-20.0)
[2016-06-24] MEDS: ENOXAPARIN 40 MG/0.4 ML DISP.SYRIN. SQ SCH (14:39)
[2016-06-24 15:14] VITALS: BP 158/75
[2016-06-24] MEDS: CEFTRIAXONE SODIUM 1 GM in IV NORMAL SALINE 50ML 50 ML IV SCH (16:00)
--- NOTE | 2016-06-24 18:02 | DS ---
DATE OF DISCHARGE: 06/24/2016 HOSPITAL COURSE: The patient is a 61-year-old male patient who was admitted with fever, tachycardia and hypotension. In the Emergency Room, his temperature was 100.8, pulse was extremely high at 173 and his blood pressure was 83/65. The patient himself complained of severe cough, fever, chills, myalgia and urinary frequency. He apparently has been on doxycycline after completing the course of IV antibiotics for his leg osteomyelitis and underwent left above knee amputation. The organisms were Citrobacter, pseudomonas and Klebsiella growing in his blood. He has been having problems with urinary retention and was treated for Janna urinary tract infection. He apparently is known to have episodes of supraventricular tachycardia, has had treatment with adenosine at the [facility]; however, he was extensively investigated and no abnormality was found. In any case, he was investigated in the Emergency Room, was found to have sepsis with organ dysfunction, urinary tract infection, hypertension that has resolved with fluid resuscitation, moderate protein calorie malnutrition and episode of supraventricular tachycardia that has resolved with hydration. He apparently has had recent osteomyelitis that resulted in his having left above-knee amputation, type 2 diabetes with hyperglycemia, elevated D-dimer with no evidence of PE. He was admitted to the ICU, started on aggressive IV fluid and also IV antibiotic. He had a CT scan of his left lower extremity. It was negative for osteomyelitis and he did actually extremely well. His white cell count came down from 12,700 to 7,900. His urine culture has grown more than 100,000 colony-forming units per mL of Klebsiella pneumoniae susceptible to almost all antibiotics except the ampicillin. He has been on ceftriaxone. PHYSICAL EXAMINATION: GENERAL: When I saw him today, he was resting slightly propped up in bed, in no apparent distress. He was awake, alert. On questioning him, he denied any complaint, in particular denied any chills, rigors or fever, denied any dysuria, frequency or hematuria, denied any nausea, vomiting, has been tolerating his food and has been afebrile, hemodynamically stable with normal white cell count, a decision was made to discharge him back to the [facility] to continue treatment as an outpatient with oral cefuroxime. When I examined him, he looked pale, but no jaundice, cyanosis, or thyromegaly. No jugular venous distention. No limb edema. VITAL SIGNS: His heart rate was 71, blood pressure 158/75, temperature was 98.9, respiratory rate was 20 and oxygen saturation was 96%. HEAD, EYES, EARS, NOSE AND THROAT: Normocephalic, atraumatic. NECK: Supple. HEART: Showed normal first and second heart sounds with no gallop, rub or murmur. CHEST: Clear to auscultation. No crepitation or rhonchi. ABDOMEN: Distended, soft, nontender. NEUROLOGIC: He was awake, alert, responding appropriately. Cranial nerves are intact. He moves extremities without difficulty. He is mostly bed bound and chair bound as he has left above knee amputation. His intake over the last 24 hours was 4650, output was 650. LABORATORY DATA: Showed a white cell count of 7900, hemoglobin 10.7, hematocrit 32.4, MCV 83 and platelet count ____. His chemistry showed serum sodium 142, potassium 3.9, chloride 106, bicarbonate 27, anion gap of 9, BUN 17, creatinine 1. Estimated GFR was 76 mL per minute. His glucose was 106, calcium was 8.6, magnesium was 1.9. Total bilirubin, AST, ALT, alkaline phosphatase were normal. His total protein was 6.6, albumin was 2.4. D-dimer was 1 mg. Urinalysis showed that he has large leukocyte esterase, 3-5 rbc's, too numerous to count wbc's and too many bacteria with the culture growing more than 100,000 colony-forming units per mL of Klebsiella pneumoniae. DISCHARGE MEDICATIONS: The patient will be discharged to continue on cefuroxime 500 mg twice a day for 7 days, Tylenol 650 mg every 6 hours, aspirin 81 mg once a day, atorvastatin 40 mg at bedtime, cyanocobalamin 1000 mcg p.o. daily, ergocalciferol for vitamin D2 50,000 units once a week, finasteride 5 mg once a day, gabapentin 300 mg 3 times a day, hydrocodone/APAP 5/325 one tablet every 6 hours. He is on NovoLog insulin 6 units subcutaneously before meals. He is on detemir insulin 20 units at bedtime, magnesium oxide 400 mg twice a day, metformin 1000 mg p.o. b.i.d., metoprolol tartrate 25 mg twice a day, polyethylene glycol 17 grams in 8 ounces of water daily p.r.n. for constipation, Flomax 0.8 mg p.o. at bedtime and venlafaxine 75 mg p.o. b.i.d. FINAL DISCHARGE DIAGNOSES: Sepsis with organ dysfunction, resolved; urinary tract infection, resolved; septic shock has resolved; moderate protein calorie malnutrition with serum albumin is 2.4; alcohol and tobacco use disorder, episode of SVT resolved with hydration, history of osteomyelitis, type 2 diabetes, elevated D-dimer, negative for pulmonary embolism and deep venous thrombosis workup, hypertension and vomiting has resolved. CRISPIN BANEGAS MD DR: LAURENCE/tracey JOB#: [id number] / [id number]
[2016-06-24 19:54] VITALS: BP 169/88
[2016-06-24] MEDS: ATORVASTATIN CALCIUM 20 MG TABLET PO SCH (20:48)
[2016-06-24 22:44] VITALS: BP 113/53
[2016-06-25 05:10] VITALS: BP 141/89
[2016-06-25] MEDS: INSULIN ASPART 300 UNITS/3 ML INSULN.PEN SQ SCH (07:30)
[2016-06-25] MEDS ORDERED: CEFPODOXIME PROXETIL 100 MG TABLET PO SCH (09:00)
[2016-06-25] MEDS: POLYETHYLENE GLYCOL 3350 17 GM PACKET. PO SCH (09:00)
[2016-06-25 09:18] VITALS: BP 141/89
[2016-06-25] MEDS: METOPROLOL TART IMMED RELEASE 25 MG TABLET PO SCH (09:18)
[2016-06-25] MEDS: ASPIRIN 81 MG TAB.CHEW PO SCH (09:18)
[2016-06-25] MEDS: METFORMIN 500 MG TABLET. PO SCH (09:18)
[2016-06-25] MEDS: VENLAFAXINE 50 MG TABLET. PO SCH (09:19)
[2016-06-25] MEDS: TAMSULOSIN 0.4 MG CAP.ER.24H. PO SCH (09:20)
[2016-06-25] MEDS: MAGNESIUM OXIDE 400 MG TABLET PO SCH (09:20)
[2016-06-25] MEDS: FINASTERIDE 5 MG TABLET PO SCH (09:21)
[2016-06-25] MEDS: GABAPENTIN 300 MG CAPSULE. PO SCH (09:21)
[2016-06-28] MEDS ORDERED: ERGOCALCIFEROL (VITAMIN D2) 50,000 UNIT CAPSULE PO SCH (09:00)
== END 2016-06-25 09:58 | disposition short-term general hospital (02) | DRG 871 ==
LOC: ER 05:20 → ICU 11:09 → 1 SOUTH 06-24 03:30
PROVIDERS: ADMIT Family Medicine; ATTEND Family Medicine
DX: A41.9 Sepsis, unspecified organism (principal); R65.21 Severe sepsis with septic shock; E44.0 Moderate protein-calorie malnutrition; I47.1 Supraventricular tachycardia; N39.0 Urinary tract infection, site not specified; M86.60 Other chronic osteomyelitis, unspecified site; E11.319 Type 2 diabetes mellitus with unspecified diabetic retinopathy without macular edema; E11.69 Type 2 diabetes mellitus with other specified complication; E11.65 Type 2 diabetes mellitus with hyperglycemia; E78.00 Pure hypercholesterolemia, unspecified; E78.5 Hyperlipidemia, unspecified; F03.90 Unspecified dementia, unspecified severity, without behavioral disturbance, psychotic disturbance, mood disturbance, and anxiety; F17.210 Nicotine dependence, cigarettes, uncomplicated; G47.00 Insomnia, unspecified; G54.6 Phantom limb syndrome with pain; L97.519 Non-pressure chronic ulcer of other part of right foot with unspecified severity; I95.1 Orthostatic hypotension; I10 Essential (primary) hypertension; N40.1 Benign prostatic hyperplasia with lower urinary tract symptoms; Z89.612 Acquired absence of left leg above knee; Z89.512 Acquired absence of left leg below knee; Z68.23 Body mass index [BMI] 23.0-23.9, adult
CPT/HCPCS: 36415; 73700; 74022; 78315; 80053; 80202; 81001; 82150; 82550; 82553; 82947; 83605; 83690; 83735; 84484; 85027; 85379; 86140; 87040; 87086; 87186; 87641; 87804; 93005; 96361; 96365; 96366; 96367; 96374; 96375; A9503; G0480; G0481; J0696; J1650; J1815; J2405; J2543; J3370; J7040; J7050; 99285-25; J7030